=== PATIENT | female | born 1940 | race Caucasian/White ===

== ENCOUNTER → 2017-04-20 | Outpatient (CLI) | payer MEDICARE, OTHER ==
--- NOTE | 2017-04-20 11:01 | WOMENS IMAGING REPORT ---
EXAM DESCRIPTION: BONE DENSITY HIP/SPINE COMPLETED DATE/TIME: 04/20/2017 10:40 am REASON FOR STUDY: UNSPECIFIED MENOPAUSAL; N95.9 Z12.31 ENCNTR SCREEN MAMMOGRAM FOR MALIGNANT NEOPLA SM OF RAUL N95.9 UNSPECIFIED MENOPAUSAL AND PERIMENOPAUSAL DISORDER COMPARISON: 06/06/2007. TECHNIQUE: Dual-Energy X-ray Absorptiometry (DEXA) of the AP Spine and Hip. LIMITATIONS: None. FINDINGS: LUMBAR SPINE: The bone mineral density (BMD) measured from L1-L4 in the AP projection correlates with a T-score of 0.2, which is normal as defined by the World Health Organization. HIP: The bone mineral density (BMD) measured in the left hip correlates with a T-score of -1.4, which is o steopenia as defined by the World Health Organization. IMPRESSION: 1. LUMBAR SPINE: NORMAL. 2. HIP: OSTEOPENIA. COMMENT: The World Health Organization defines low BMD as follows: T-score: Normal: Greater than -1.0 Osteopenia: Between -1.0 and -2.5 Osteoporosis: Less than -2.5 without fractures Established osteoporosis: Less than -2.5 with fractures In general, you may wish to consider: Diagnosis Treatment Follow-up DEXA Normal BMD Prevention 2-3 years Osteopenia Prevention/Therapy 1-2 years Osteoporosis Therapy Yearly TECHNICAL DOCUMENTATION: JOB ID: [id number]- All Rights Reserved
--- NOTE | 2017-04-20 14:36 | WOMENS IMAGING REPORT ---
EXAM DESCRIPTION: BILAT SCREENING MAMMO W/CAD COMPLETED DATE/TIME: 04/20/2017 10:40 am REASON FOR STUDY: ROUTINE SCREENING; Z12.31 Z12.31 ENCNTR SCREEN MAMMOGRAM FOR MALIGNANT NEOPLASM O F RAUL N95.9 UNSPECIFIED MENOPAUSAL AND PERIMENOPAUSAL DISORDER COMPARISON: 2011 to 2015 TECHNIQUE: Standard craniocaudal and mediolateral oblique views of each breast recorded using digita l acquisition. LIMITATIONS: None. FINDINGS: No masses, calcifications or architectural distortion. No areas of suspicion. Read with the assistance of CAD. .[facility] - R2 Cenova Version 1.3 .[facility] - R2 Cenova Version 1.3 .[facility] - R2 Cenova Version 2.4 .[facility] - R2 Cenova Version 2.4 .[facility] - R2 Ict Customer Support Officer Version 9.2 IMPRESSION: NORMAL MAMMOGRAM. BIRADS 1. BREAST DENSITY: b. There are scattered areas of fibroglandular density. BIRAD: 1 NEGATIVE RECOMMENDATION: ROUTINE SCREENING COMMENT: The patient has been notified of the results by letter per MQSA requirements. Additional no tification policies are in place for contacting patient with suspicious or incomplete findings. Quality ID #[id number]: The [employer] recommends an annual screening mammogram for women aged 40 years or over. This facility utilizes a reminder system to ensure that all patients receive reminder letters, and/or direct phone calls for appointments. This includes reminders for routine scr eening mammograms, diagnostic mammograms, or other Breast Imaging Interventions when appropriate. Th is patient will be placed in the appropriate reminder system. The [employer] (ACR) has developed recommendations for screening MRI of the breast s in certain patient populations, to be used in conjunction with mammography. Breast MRI surveillanc e may be appropriate for women with more than 20% lifetime risk of developing breast cancer as deter mined by genetic testing, significant family history of the disease, or history of mantle radiation f or Hodgkins Disease. ACR Practice Guidelines 2008. TECHNICAL DOCUMENTATION: FINDING NUMBER: (1) ASSESSMENT: (1) JOB ID: [id number] [employer]- All Rights Reserved
== END ==
LOC: WI 10:01
PROVIDERS: ATTEND Internal Medicine
DX: Z12.31 Encounter for screening mammogram for malignant neoplasm of breast (principal); M85.88 Other specified disorders of bone density and structure, other site; N95.9 Unspecified menopausal and perimenopausal disorder
CPT/HCPCS: 77080; G0202; 77067

== ENCOUNTER 2018-05-06 06:57 | Emergency (ER) | payer MEDICARE, OTHER ==
[2018-05-06] MEDS ORDERED: IBUPROFEN 600 MG TABLET PO ONE (08:19)
[2018-05-06] MEDS ORDERED: IBUPROFEN 600 MG TABLET ONE (08:23)
--- NOTE | 2018-05-06 09:35 | RADIOLOGY REPORT (SQ) ---
EXAM DESCRIPTION: HAND LEFT 3 VIEWS COMPLETED DATE/TIME: 05/06/2018 9:02 am REASON FOR STUDY: fall, pain to dorsal surface of hand and 4th digit COMPARISON: None. EXAM PARAMETERS: NUMBER OF VIEWS: Three views. TECHNIQUE: AP, lateral and oblique radiographic images acquired of the left hand. LIMITATIONS: None. FINDINGS: MINERALIZATION: Normal. BONES and JOINTS: There is dorsal dislocation of the left 3rd finger middle phalanx at the PIP joint. Small acute avulsion fragments are present along the radial and palmar aspect of the 3rd finger PIP joint. There is intra-articular air along the dorsal aspect of the joint. 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 SOFT TISSUES: No soft tissue swelling. No foreign body. OTHER: No other significant finding. IMPRESSION: Acute dorsal dislocation of the left 3rd finger middle phalanx at the PIP joint, with sm all acute avulsion fragment is present along the radial and palmar aspect of the 3rd PIP joint. TECHNICAL DOCUMENTATION: JOB ID: [id number] [email or web address]- All Rights Reserved Reading location - IP/workstation name: [email or web address]
[2018-05-06] MEDS ORDERED: LIDOCAINE 1% INJ-PF (10 MG/ML) 30 ML SDV INJ ONE (09:49)
--- NOTE | 2018-05-06 11:08 | RADIOLOGY REPORT (SQ) ---
EXAM DESCRIPTION: HAND LEFT 3 VIEWS COMPLETED DATE/TIME: 05/06/2018 10:29 am REASON FOR STUDY: post reduction COMPARISON: 05/06/2018 0859 hours left hand three views EXAM PARAMETERS: NUMBER OF VIEWS: Three views. TECHNIQUE: AP, lateral and oblique radiographic images acquired of the left hand. LIMITATIONS: None. FINDINGS: Persistent acute dorsal dislocation of the left 3rd finger middle phalanx at the PIP joint . Unchanged small avulsion fragments. Interval placement of the hand in an ulnar gutter fiberglass splint. Findings called to Dr. Rogers IMPRESSION: Persistent acute dorsal dislocation of the left 3rd finger middle phalanx at the PIP [place] nt. TECHNICAL DOCUMENTATION: JOB ID: [id number] [employer]- All Rights Reserved Reading location - IP/workstation name: [email or web address]
--- NOTE | 2018-05-06 11:13 | ER Document Report ---
HPI - HPI Time Seen by Provider: 05/06/18 07:43 Pain Level: 3 Notes: Patient is a 78-year-old female who presents with chief complaint of left fourth digit swelling and pain after falling earlier today. She reports that she tripped while taking out her dog and fell onto her left hand. She has a a very small contusion to the palmar surface of the left fourth digit that is superficial. There is swelling noted to the left fourth digit at the knuckle, she has her wedding rings in place which are unable to be removed. No active bleeding noted at time of arrival. - REPRODUCTIVE Reproductive: DENIES: : Past Medical History - General Information source: Patient - Social History Smoking Status: Never Smoker Frequency of alcohol use: None Drug Abuse: None Family History: Reviewed & Not Pertinent - Past Medical History Cardiac Medical History: Reports: Hx Hypercholesterolemia, Hx Hypertension Pulmonary Medical History: Reports: Hx Asthma Past Surgical History: Reports: Hx Appendectomy, Hx Hysterectomy - Immunizations Hx Diphtheria, Pertussis, Tetanus Vaccination: No Vertical Provider Document - CONSTITUTIONAL Notes: PHYSICAL EXAMINATION: GENERAL: Well-appearing, well-nourished and in no acute distress. HEAD: Atraumatic, normocephalic. EYES: Pupils equal round extraocular movements intact, conjunctiva are normal. ENT: Nares patent NECK: Normal range of motion LUNGS: No respiratory distress Musculoskeletal: Limited range of motion to left 4th digit with swelling noted. Wedding rings in place. +sensation distal to injury. NEUROLOGICAL: Normal speech, normal gait. PSYCH: Normal mood, normal affect. SKIN: Warm, Dry, normal turgor, no rashes or lesions noted. - INFECTION CONTROL TRAVEL OUTSIDE OF THE [place] IN LAST 30 DAYS: No Course - Re-evaluation Re-evalutation: Multiple attempts were done by multiple staff members to remove patient's wedding rings from her left fourth digit after consent was obtained. Wedding ring was cut and removed and given to patient's . We will send patient for x-ray. Avulsion fracture noted to left fourth digit as well as dislocation. Digital block placed to left 4th digit. Attempted to reduce the left fourth digit manually. I did hear and feel a pop and patient reported that the finger felt better. Postreduction films were obtained and the digit was not reduced and continues to be misaligned. 05/06/18 11:[address] Do pretzel twisting machine operator. 05/06/18 11:[address] Do who reviewed the films. He will recommends reducing the finger again and splinting in a flexed position. 05/06/18 11:30 Patient placed in finger traps. 05/06/18 12:[address] Rogers, repeat films in progress. 05/06/18 13:00 Post reduction films show reduced left 4th digit. Splint in place. No neurovascular compromise. Patient will follow up with Dr. Do in the office. - Vital Signs Vital signs: Temp Pulse Resp BP Pulse Ox 98 F 86 18 166/91 H 97 05/06/18 07:07 05/06/18 07:07 05/06/18 07:07 05/06/18 07:07 05/06/18 07:07 Procedures - Immobilization Left hand Pre-Proc Neuro Vasc Exam: Normal Immobilizer type: Sling, Other Performed by: Provider, PCT Post-Proc Neuro Vasc Exam: Normal Alignment checked and good: Yes - Joint Reduction/Fracture Care Left 4th digit Pre-procedure NV exam: Yes Fracture: Closed Post-reduction x-ray: Joint reduced Reduction attempts: 3 - Fist 2 attempts by MACK Marinelli, 3rd attempt by Dr. Rogers Complications: No - Additional Procedures Ring removal Additional Procedures: Other Discharge - Discharge Clinical Impression: Fracture of phalanx of hand Qualifiers: Encounter type: initial encounter Fracture type: closed Qualified Code(s): S62.609A - Fracture of unspecified phalanx of unspecified finger, initial encounter for closed fracture Condition: Stable Disposition: HOME, SELF-CARE Additional Instructions: Fracture You have a fracture. The typical broken bone requires only protection and sufficient time for healing. "Setting" is necessary only if the bones are crooked or out of position. The physician will re-assess you periodically to make certain that the bone heals without complications. It's important that you follow the instructions given you. The initial treatment is immobilization, elevation of the injury, and cold packs. Not all fractures require a cast. Depending on the location and type of fracture, immobilization may consist of a splint, cast, sling, bulky dressing, or simply rest. The length of time required for healing depends on the location and type of fracture, and on the age of the patient. The treatment plan the physician has outlined for you is customized to your fracture and health condition. Call the doctor or return at once if pain becomes severe, or if severe swelling or numbness develop. Please keep the splint in place until seen by orthopedics. Take ibuprofen 600 mg every 6 hours this will help with both pain and inflammation. Use the hydrocodone as needed for severe pain. You may take 1/2-1 tablet every 4 hours. Please be mindful that this hydrocodone does have Tylenol in it should be cautious if taking any additional Tylenol. You may ice and elevate as well for comfort. Prescriptions: RX: Hydrocodone Bit/Acetaminophen [Hydrocodon-Acetaminophen 5-325] 0.5 - 1 each PO Q4H #10 tablet Referrals: KIRILL DO DO [ACTIVE STAFF] - Follow up as needed
--- NOTE | 2018-05-06 11:47 | RADIOLOGY REPORT (SQ) ---
EXAM DESCRIPTION: HAND LEFT 3 VIEWS COMPLETED DATE/TIME: 05/06/2018 11:20 am REASON FOR STUDY: post reduc #2 COMPARISON: 05/06/2018, 859 hours and 1029 hours EXAM PARAMETERS: NUMBER OF VIEWS: Three views. TECHNIQUE: AP, lateral and oblique radiographic images acquired of the left hand. LIMITATIONS: None. FINDINGS: Post 2nd attempted closed reduction left 3rd finger dislocation. Persistent dorsal dislocation of the left 3rd finger middle phalanx at the PIP joint. Small avulsion fragments are again seen along the palmar and radial aspects of the base, 3rd finger proximal phalan x. Finger immobilized in an aluminum finger splint. IMPRESSION: Persistent dorsal dislocation of the left 3rd finger middle phalanx at the PIP joint TECHNICAL DOCUMENTATION: JOB ID: [id number] [employer]- All Rights Reserved Reading location - IP/workstation name: [email or web address]
--- NOTE | 2018-05-06 13:32 | RADIOLOGY REPORT (SQ) ---
EXAM DESCRIPTION: HAND LEFT 3 VIEWS COMPLETED DATE/TIME: 05/06/2018 1:13 pm REASON FOR STUDY: post reduction COMPARISON: None. EXAM PARAMETERS: NUMBER OF VIEWS: Three views. TECHNIQUE: AP, lateral and oblique radiographic images acquired of the left hand. LIMITATIONS: None. FINDINGS: MINERALIZATION: Normal. BONES: There has been interval reduction of the previously seen dislocation of the left 4th proximal interphalangeal joint. Spica type cast is applied about the left hand. JOINTS: No effusions. SOFT TISSUES: No soft tissue swelling. No foreign body. OTHER: No other significant finding. IMPRESSION: There has been interval reduction of the previously seen dislocation of the left 4th pro ximal interphalangeal joint. Spica type cast is applied about the left hand. TECHNICAL DOCUMENTATION: JOB ID: [id number] [employer]- All Rights Reserved Reading location - IP/workstation name: [email or web address]
[2018-05-06 13:44] VITALS: BP 142/83
== END 2018-05-06 13:43 | disposition home or self-care (01) ==
LOC: ER 06:57
PROC: 0PSVXZZ Reposition Left Finger Phalanx, External Approach (ICD-10-PCS; principal; 2018-05-06)
DX: S62.609A Fracture of unspecified phalanx of unspecified finger, initial encounter for closed fracture (principal); M79.89 Other specified soft tissue disorders; W01.0XXA Fall on same level from slipping, tripping and stumbling without subsequent striking against object, initial encounter; I10 Essential (primary) hypertension; J45.909 Unspecified asthma, uncomplicated
CPT/HCPCS: 99283; 73130; 26742; A9270; J3490